=== PATIENT | female | born 1985 | race Caucasian/White ===

== ENCOUNTER 2017-07-16 14:27 | Emergency (ER) ==
[2017-07-16 14:32] VITALS: BP 146/87; TEMP 98; BMI 34.8
[2017-07-16] MEDS ORDERED: VALIUM SYRINGE IM STA (15:08)
[2017-07-16] MEDS ORDERED: TORADOL IM STA (15:08)
[2017-07-16] MEDS ORDERED: MORPHINE 2 MG/ML SYRINGE IM STA ×2 (15:08→16:44)
--- NOTE | 2017-07-16 15:13 | ED.PDOC ---
General ED Provider: Dr. PAMELA ARNOLD Chief Complaint: Back Pain Stated Complaint: low back pain Time Seen by Physician: 14:33 (seen with daryn ) Mode of Arrival: Walk-In Information Source: Patient Exam Limitations: No limitations Primary Care Provider: SEVERO LEMA Referred to ED by: Other (pain right low back after lifting her child ) Nursing and Triage Documentation Reviewed and Agree: Yes Reviewed sepsis parameters & appropriate labs ordered?: Yes System Inflammatory Response Syndrome: Not Applicable Sepsis Protocol: For patient's 13 years and over: Temp is 96.8 and below OR 101 and greater Pulse >90 BPM Resp >20/minute Acutely Altered Mental Status Are patient's symptoms suggestive of a new infection, such as: -Pneumonia -Skin, Soft Tissue -Endocarditis -UTI -Bone, Joint Infection -Implantable Device -Acute Abdominal Infection -Wound Infection -Meningitis -Blood Stream Catheter Infection -Unknown System Inflammatory Response Syndrome: Not Applicable Musculoskeletal Complaint Exam - Back Pain Complaint/Exam Mechanism of Injury: Reports: No known trauma Onset/Duration: today x 1 hr Symptoms Are: Still present Timing: Constant Episodes Lasting: Minutes Initial Severity: Moderate Current Severity: Moderate Location: Reports: Discrete Character: Reports: Aching Aggravating: Reports: Movements, Lifting Alleviating: Reports: Rest, Position Associated Signs and Symptoms: Denies: Swelling, Redness, Bruising, Fever, Weakness, Numbness, Tingling, Abdominal pain, Flank pain, Bladder incontinence, Bowel incontinence, Weight loss, Pain with weight bearing Related History: Reports: Similar episode TAD Risk Factors: Reports: None AAA Risk Factors: Reports: None Cauda Equina Risk Factors: Reports: None Epidural Abcess Risk Factors: Reports: None Related Surgical History: Reports: None Focal Tenderness: No Paraspinal Muscle Tenderness: No Paraspinal Muscle Spasm: No Scoliosis: No Lordosis: No Kyphosis: No Differential Diagnoses: Strain, Sprain Review of Systems - Review Of Systems Constitutional: Reports: No symptoms Eyes: Reports: No symptoms Ears, Nose, Mouth, Throat: Reports: No symptoms Respiratory: Reports: No symptoms Cardiac: Reports: No symptoms GI: Reports: No symptoms : Reports: No symptoms Musculoskeletal: Reports: Back pain Skin: Reports: No symptoms Neurological: Reports: No symptoms Endocrine: Reports: No symptoms Hematologic/Lymphatic: Reports: No symptoms All Other Systems: Reviewed and Negative Past Medical History - Past Medical History Previously Healthy: Yes Endocrine: Reports: None Cardiovascular: Reports: None Respiratory: Reports: None Hematological: Reports: None Gastrointestinal: Reports: None Genitourinary: Reports: None Neuro/Psych: Reports: None Musculoskeletal: Reports: None Cancer: Reports: None Last Menstrual Period: NA - Surgical History General Surgical History: Reports: None - Family History Family History: Reports: None - Social History Smoking Status: Never smoker Hx Substance Use: No Alcohol Screening: None Physical Exam - Physical Exam Appearance: Well-appearing, No pain distress, Well-nourished Eyes: CORY, EOMI, Conjunctiva clear ENT: Ears normal, Nose normal, Oropharynx normal Respiratory: Airway patent, Breath sounds clear, Breath sounds equal, Respirations nonlabored Cardiovascular: RRR, Pulses normal, No rub, No murmur GI/: Soft, Nontender, No masses, Bowel sounds normal, No Organomegaly Musculoskeletal: Normal strength, ROM intact, No edema, No calf tenderness Skin: Warm, Dry, Normal color Neurological: Sensation intact, Motor intact, Reflexes intact, Cranial nerves intact, Alert, Oriented Psychiatric: Affect appropriate, Mood appropriate Critical Care Note - Critical Care Note Total Time (mins): 0 Course - Course Orders, Labs, Meds: Orders Category Date Time Status Diazepam Syringe [Valium Syringe] MEDS 07/16/17 15:08 Discontinued 2 mg IM ONCE STA Ketorolac Tromethamine [Toradol] MEDS 07/16/17 15:08 Discontinued 60 mg IM ONCE STA Morphine Sulfate [Morphine 2 mg/ml Syringe] MEDS 07/16/17 15:08 Discontinued 4 mg IM ONCE STA Medications Discontinued Medications Generic Name Dose Route Start Last Admin Trade Name Anat PRN Reason Stop Dose Admin Diazepam 2 mg 07/16/17 15:08 Valium Syringe IM 07/16/17 15:09 ONCE STA Ketorolac Tromethamine 60 mg 07/16/17 15:08 Toradol IM 07/16/17 15:09 ONCE STA Morphine Sulfate 4 mg 07/16/17 15:08 Morphine 2 Mg/Ml Syringe IM 07/16/17 15:09 ONCE STA Vital Signs: Temp Pulse Resp BP Pulse Ox 07/16/17 14:27 98.0 F 85 18 146/87 H 97 Departure - Departure Time of Disposition: 16:00 Disposition: HOME SELF-CARE Discharge Problem: Backache Low back pain Qualifiers: Chronicity: acute Back pain laterality: unspecified Sciatica presence: without sciatica Qualified Code(s): M54.5 - Low back pain Instructions: Back Pain (ED) Condition: Good Pt referred to PMD for follow-up: Yes IPMP verified?: No Additional Instructions: Please call your Family Physician as soon as possible to schedule a follow-up appointment. Prescriptions: Hydrocodone/Acetaminophen [[place] 10-325 Tablet] 1 each PO Q8HR #4 tablet Allergies/Adverse Reactions: Allergies amoxicillin Adverse Reaction (Verified 07/16/17 14:32) sulfamethoxazole [From Bactrim] Adverse Reaction (Verified 07/16/17 14:32) trimethoprim [From Bactrim] Adverse Reaction (Verified 07/16/17 14:32) Home Medications: Ambulatory Orders Docusate Sodium [Colace] 100 mg PO DAILY 07/16/17 Escitalopram Oxalate [Lexapro] 10 mg PO DAILY 07/16/17 Hydrocodone/Acetaminophen [[place] 10-325 Tablet] 1 each PO Q8HR #4 tablet
--- NOTE | 2017-07-16 18:05 | CT ---
EXAM: CT lumbar spine without contrast. HISTORY: Back pain COMPARISON: None TECHNIQUE: Helical axial CT of the lumbar spine was performed without contrast with coronal and sagi ttal reconstructions. FINDINGS: There is no compression or subluxation or listhesis. Alignment is anatomic. There are no p ars defects. Visualized portions of the pelvis show no sacral fracture or sacroiliitis. There are no acute soft tissue abnormalities. There are 5 lumbar type vertebral bodies. T12-L1: Normal L1-2: Normal L2-3: Normal L3-4: Normal L4-5: Normal L5-S1: There is some minimal facet hypertrophy left greater than right. There is a minimal bulge. Canal stenosis: None. L5 neural foraminal stenosis: None. S1 lateral recess stenosis: None. IMPRESSION: 1. No significant focal or lateralizing abnormality. 2. Trace lower lumbar degenerative change.
== END 2017-07-16 18:37 | disposition home or self-care (01) ==
LOC: ED 14:27
DX: M54.5 Low back pain (principal); X50.1XXA Overexertion from prolonged static or awkward postures, initial encounter
CPT/HCPCS: 36415; 84703; 96372; 99283

== ENCOUNTER 2018-08-17 09:06 | Emergency (ER) | payer MEDICAID, OTHER ==
[2018-08-17 09:20] VITALS: BP 126/86; TEMP 98.5; BMI 36.3
--- NOTE | 2018-08-17 11:17 | CT ---
Exam: CT chest with contrast and CT angiogram. HISTORY: Chest pain radiating to the back. Chest pain since July. Procedures: Contiguous axial images were obtained through the chest following intravenous administra tion of contrast. Multiplanar reformatted images, maximal intensity projection images and three-dime nsional volume rendered images were also created and reviewed. Findings: Findings: There is no axillary lymphadenopathy. Subcentimeter lymph nodes are noted throu ghout the mediastinum, without mediastinal lymphadenopathy. There are calcified left hilar lymph nod es. No pericardial effusion. Limited visualization of the upper abdominal soft tissues demonstrates no lymphadenopathy. Surgical clips are in the gallbladder fossa. Lung windows demonstrate no evide nce of pneumothorax or lobar consolidation. Calcified granulomata are noted. The trachea and mainst em bronchi appear patent. Bone windows demonstrate no evidence of acute fracture. There is no osseous erosion. CT angiogram: The thoracic aorta demonstrates no dilatation or dissection. There is no filling defec t identified in the main or segmental pulmonary arteries. Impressions: No acute cardiopulmonary disease. No evidence of pulmonary arterial thromboembolism is identified on this examination. Prior cholecystectomy. Findings were faxed to the emergency department at 11:05 a.m.
--- NOTE | 2018-08-17 11:44 | ED.PDOC ---
General ED Provider: Dr. PAMELA ARNOLD Chief Complaint: Chest Pain Stated Complaint: chest pain central intermittent x 2 months . no work up reported Time Seen by Physician: 09:11 (seen with SRI) Mode of Arrival: Walk-In Information Source: Patient Exam Limitations: No limitations Primary Care Provider: KELLI DOWLING Nursing and Triage Documentation Reviewed and Agree: Yes Does patient meet sepsis criteria?: No If yes, has appropriate treatment been initiated?: No System Inflammatory Response Syndrome: Not Applicable Sepsis Protocol: For patient's 13 years and over: Temp is 96.8 and below OR 101 and greater Pulse >90 BPM Resp >20/minute Acutely Altered Mental Status Are patient's symptoms suggestive of a new infection, such as: -Pneumonia -Skin, Soft Tissue -Endocarditis -UTI -Bone, Joint Infection -Implantable Device -Acute Abdominal Infection -Wound Infection -Meningitis -Blood Stream Catheter Infection -Unknown Cardiovascular Complaint Exam - Chest Pain Complaint/Exam Onset: Gradual Duration: 2 MOTHS Symptoms Are: Still present Timing: Intermittent Length of Chest Pain Episodes: 1 HR Initial Severity: Mild Current Severity: None Location: Reports: Discrete, Midsternal Pain Radiates: Reports: Back Character: Reports: Aching Aggravating: Reports: None Alleviating: Reports: Spontaneous resolution Associated Signs and Symptoms: Reports: Back pain. Denies: Diaphoresis, Nausea , Vomiting, Fever, Palpitations, Cough, Hemoptysis, Abdominal pain, Dizziness, Short of air, Calf pain, Calf swelling Related History: Reports: Similar episode Related Surgical History: Reports: None History of Healthcare-Acquired Pneumonia: Reports: No AMI/ACS Risk Factors: Reports: None TAD Risk Factors: Reports: None Pulmonary Embolism Risk Factors: Reports: None Prior Care for this Complaint: No Recent Stress Test: No Recent Echo/LV Function: No JVD Present: No Subcutaneous Emphysema Present: No Diminshed Breath Sounds: No Reproducible Chest Wall Pain: No Bilateral Pulses Present: No Unequal Pulses Noted: No If Risk Factors for AMI/ACS Consider: EKG, Cardiac Enzymes Differential Diagnoses: Stable Angina, Chest Wall Pain, GI Diseasae, Lower Resp. Infection, Pulmonary Embolism Quality Indicator For Non-Traumatic Chest Pain/Syncope: EKG Performed Quality Indicators For Pneumonia/CAP: SpO2 assessed, Vital signs, Mental status assessed Review of Systems - Review Of Systems Constitutional: Reports: No symptoms Eyes: Reports: No symptoms Ears, Nose, Mouth, Throat: Reports: No symptoms Respiratory: Reports: No symptoms Cardiac: Reports: Chest pain GI: Reports: No symptoms : Reports: No symptoms Musculoskeletal: Reports: No symptoms Skin: Reports: No symptoms Neurological: Reports: No symptoms Endocrine: Reports: No symptoms Hematologic/Lymphatic: Reports: No symptoms All Other Systems: Reviewed and Negative Past Medical History - Past Medical History Previously Healthy: Yes Endocrine: Reports: None Cardiovascular: Reports: None Respiratory: Reports: None Hematological: Reports: None Gastrointestinal: Reports: None Genitourinary: Reports: None Neuro/Psych: Reports: None Musculoskeletal: Reports: None Cancer: Reports: None Last Menstrual Period: NO CYCLES - Surgical History General Surgical History: Reports: None - Family History Family History: Reports: None - Social History Smoking Status: Never smoker Hx Substance Use: No Alcohol Screening: None Physical Exam - Physical Exam Appearance: Well-appearing, No pain distress, Well-nourished Eyes: CORY, EOMI, Conjunctiva clear ENT: Ears normal, Nose normal, Oropharynx normal Respiratory: Airway patent, Breath sounds clear, Breath sounds equal, Respirations nonlabored Cardiovascular: RRR, Pulses normal, No rub, No murmur GI/: Soft, Nontender, No masses, Bowel sounds normal, No Organomegaly Musculoskeletal: Normal strength, ROM intact, No edema, No calf tenderness Skin: Warm, Dry, Normal color Neurological: Sensation intact, Motor intact, Reflexes intact, Cranial nerves intact, Alert, Oriented Psychiatric: Affect appropriate, Mood appropriate Interpretation - Radiology Interpretation Radiology Interpretation By: Radiologist Radiology Results: No acute changes ([employer] P.E. NO DISSECTION) - Marble Polisher Rate: Normal Rhythm: Sinus Ectopy: None - EKG Interpretation Rate: Normal Rhythm: Sinus Ectopy: None [place]: NL ST Segment: Normal Re-Evaluation - Re-Evaluation Time of Re-Evaluation: 11:00 Status: Improved Vital Signs Stable: Yes Pain Level: 0 Appearance: NAD Lungs: Clear Skin: Warm and Dry Neuro: Alert and Oriented X3 CV: RRR - Re-Evaluation Time of Re-Evaluation: 11:46 Status: Improved Vital Signs Stable: Yes Pain Level: 0 Appearance: NAD Skin: Warm and Dry Neuro: Alert and Oriented X3 CV: RRR (HEART SCORE DISCUSSED WITH THE PT AT BEDSIDE WHICH IS ZERO. COPIES OF ALL STUDIES GIVEN TO THE PT.) Critical Care Note - Critical Care Note Total Time (mins): 0 Course - Course Hematology/Chemistry: 08/17/18 09:40 08/17/18 09:40 Orders, Labs, Meds: Lab Review 08/17/18 08/17/18 08/17/18 09:40 09:40 09:40 WBC 7.90 RBC 4.66 Hgb 14.1 Hct 41.1 MCV 88.2 MCH 30.3 MCHC 34.3 RDW Coeff of Aaron 12.4 Plt Count 213 Immature Gran % (Auto) 0.4 Neut % (Auto) 68.9 Lymph % (Auto) 20.6 [place] % (Auto) 7.3 Eos % (Auto) 2.0 Baso % (Auto) 0.8 Immature Gran # (Auto) 0.0 Neut # (Auto) 5.4 Lymph # (Auto) 1.6 [place] # (Auto) 0.6 Eos # (Auto) 0.2 Baso # (Auto) 0.1 Sodium 138.4 Potassium 3.68 Chloride 103.3 Carbon Dioxide 26.7 Anion Gap 12.08 BUN 12.3 Creatinine 0.76 Estimated GFR (MDRD) 88.00 BUN/Creatinine Ratio 16.18 Glucose 89.3 Calcium 9.45 Total Bilirubin 0.57 AST 21.2 ALT 20.7 Alkaline Phosphatase 74.0 Total Creatine Kinase 74.6 Troponin I < 0.012 Total Protein 6.92 Albumin 4.45 Globulin 2.47 Albumin/Globulin Ratio 1.80 Serum , Qual Negative Orders Category Date Time Status EKG-(ED ONLY) Stat CARDIO 08/17/18 09:34 Completed EKG-(ED ONLY) Stat CARDIO 08/17/18 11:36 Ordered NPO REMINDER: IMAGING ONCE CARE 08/17/18 09:33 Completed ED IV/MEDIPORT/POWERPORT .ONCE EMERGENCY 08/17/18 09:32 Active CBC W/ AUTO DIFF Stat LAB 08/17/18 09:40 Completed COMPREHENSIVE METABOLIC PANEL Stat LAB 08/17/18 09:40 Completed CREATINE KINASE Stat LAB 08/17/18 09:40 Completed SERUM Stat LAB 08/17/18 09:40 Completed TROPONIN I Stat LAB 08/17/18 09:40 Completed 0.9 % Sodium Chloride [Saline Flush] MEDS 08/17/18 09:33 Active 1 syr IVF PRN PRN CT CHEST PE PROTOCOL Stat RADS 08/17/18 09:33 Completed Medications Generic Name Dose Route Start Last Admin Trade Name Freq PRN Reason Stop Dose Admin Sodium Chloride 1 syr 08/17/18 09:33 Saline Flush IVF PRN PRN To flush IV Vital Signs: Temp Pulse Resp BP Pulse Ox 08/17/18 09:07 98.5 F 86 20 126/86 98 DEJUAN Risk Score DEJUAN Risk Score: Risk Score Odds of by 30D 0 0.1 (0.1-0.2) 1 0.3 (0.2-0.3) 2 0.4 (0.3-0.5) 3 0.7 (0.6-0.9) 4 1.2 (1.0-1.5) 5 2.2 (1.9-2.6) 6 3.0 (2.5-3.6) 7 4.8 (3.8-6.1) Departure - Departure Time of Disposition: 11:46 (DISCUSSED WORK UP/ HEARTSCORE AND NEED FOR FOLLOW UP ) Disposition: HOME SELF-CARE Discharge Problem: Chest pain Instructions: Chest Pain (ED) Condition: Good Pt referred to PMD for follow-up: Yes IPMP verified?: No Additional Instructions: Please call your Family Physician as soon as possible to schedule a follow-up appointment. Allergies/Adverse Reactions: Allergies amoxicillin Adverse Reaction (Verified 08/17/18 09:21) sulfamethoxazole [From Bactrim] Adverse Reaction (Verified 08/17/18 09:21) trimethoprim [From Bactrim] Adverse Reaction (Verified 08/17/18 09:21) Home Medications: Ambulatory Orders Escitalopram Oxalate [Lexapro] 20 mg PO DAILY 07/16/17 Multivit-Min36/Iron/Folic Acid [Geritol Complete Tablet] 1 each PO DAILY
== END 2018-08-17 11:55 | disposition home or self-care (01) ==
LOC: ED 09:06
DX: R07.9 Chest pain, unspecified (principal); M54.9 Dorsalgia, unspecified
CPT/HCPCS: 36415; 80053; 82550; 84484; 84703; 85025; 93005; 93010; 99283

== ENCOUNTER 2018-10-12 08:15 | Outpatient (CLI) ==
--- NOTE | 2018-10-12 09:58 | US ---
EXAM: Ultrasound abdomen complete HISTORY: Right upper quadrant pain COMPARISON: None TECHNIQUE: Complete ultrasound abdomen was performed FINDINGS: Pancreas obscured secondary bowel gas shadowing. Visualized portion aorta and inferior ve na cava appear normal. Liver diffusely increased in echogenicity. Portions of the liver obscured s econdary to shadowing artifact. Main portal vein patent with direction of flow. Patient status post cholecystectomy. Mild prominence of the common bile duct at the 0.8 cm, likely postsurgical. Right kidney measures 10.9 cm in length. Left kidney measures 10.5 cm in length. No hydronephrosis. Spl een normal in size and echogenicity measuring 10.6 cm in length. Bladder only minimally distended an d poorly evaluated. IMPRESSION: 1. Hepatic steatosis. 2. Status post cholecystectomy. Mild prominence of the common bile duct, likely postsurgical. Find ings can be correlate with liver function tests.
== END 2018-10-12 08:16 | disposition home or self-care (01) ==
LOC: RAD 08:15
PROVIDERS: ATTEND Nurse Practitioner Family
DX: R10.11 Right upper quadrant pain (principal)